=== PATIENT | female | born 1955 | race Caucasian/White ===

== ENCOUNTER 2017-07-23 20:01 | Emergency (ER) | payer OTHER ==
--- NOTE | 2017-07-23 20:22 | PDOC ---
Rapid Medical Evaluation Time Seen by Provider: 07/23/17 20:20 Medical Evaluation: 07/23/17 20:20 I have performed a brief in-person evaluation of this patient. The patient presents with a chief complaint of: pain x 2 weeks "inside", R leg, denies swelling, denies recent travel Pertinent physical exam findings: no calf tenderness, no edema, ambulatory I have ordered the following: x-ray The patient will proceed to the ED for further evaluation. Discharge Disposition - Diagnosis Right leg pain - Referrals - Patient Instructions - Post Discharge Activity
[2017-07-23 20:23] VITALS: BP 154/84; PULSE 84; TEMP 98.3; BMI 20.5
--- NOTE | 2017-07-23 21:15 | PDOC ---
History of Present Illness - General Chief Complaint: Pain Stated Complaint: RT LEG PAIN Time Seen by Provider: 07/23/17 20:20 History Source: Patient Exam Limitations: No Limitations - History of Present Illness Initial Comments: 07/23/17 21:11 This is a 62-year-old woman with past medical history of asthma who presents with right lower leg she denies any trauma, fevers, chills, recent travel, recent surgery, shortness of breath, leg swelling. She states the pain comes and goes and is unable to identify any aggravating or alleviating factors. Patient states that night the pain sometimes gets worse and she describes as a cramping feeling which she is unable to fully extend her knee. Patient states throughout the day she watches her grandchildren and she spends most of the day chasing them around. Past History - Past Medical History Allergies/Adverse Reactions: Allergies Allergy/AdvReac Type Severity Reaction Status Date / Time ibuprofen [From Motrin] Allergy Verified 07/23/17 20:24 Home Medications: Ambulatory Orders Acetaminophen [Tylenol] 325 mg PO ASDIR 07/23/17 Cetirizine HCl [Zyrtec -] 10 mg PO DAILY 07/23/17 Montelukast Na [Singulair -] 10 mg PO HS 07/23/17 Asthma: Yes COPD: No Other medical history: denies - Immunization History Immunization Up to Date: Yes - Suicide/Smoking/Psychosocial Hx Smoking History: Never smoked Information on smoking cessation initiated: No Hx Alcohol Use: No Drug/Substance Use Hx: No Substance Use Type: None Review of Systems - Review of Systems Able to Perform ROS?: Yes Is the patient limited [place] proficient: No Constitutional: No: Symptoms Reported HEENTM: No: Symptoms Reported Respiratory: No: Symptoms reported Cardiac (ROS): No: Symptoms Reported ABD/GI: No: Symptoms Reported : No: Symptoms Reported Musculoskeletal: Yes: See HPI Integumentary: No: Symptoms Reported Neurological: No: Symptoms reported Endocrine: No: Symptoms Reported Hematologic/Lymphatic: No: Symptoms Reported *Physical Exam - Vital Signs Last Vital Signs Temp Pulse Resp BP Pulse Ox 98.3 F 84 20 154/84 97 07/23/17 20:21 07/23/17 20:21 07/23/17 20:21 07/23/17 20:21 07/23/17 20:21 - Physical Exam General Appearance: Yes: Appropriately Dressed. No: Apparent Distress HEENT: positive: Normal ENT Inspection Neck: positive: Trachea midline, Supple Respiratory/Chest: positive: Lungs Clear, Normal Breath Sounds. negative: Respiratory Distress, Accessory Muscle Use Cardiovascular: positive: Regular Rhythm, Regular Rate. negative: Edema, Murmur Gastrointestinal/Abdominal: positive: Normal Bowel Sounds, Soft. negative: Tender Musculoskeletal: positive: Normal Inspection. negative: CVA Tenderness Extremity: positive: Normal Capillary Refill, Normal Inspection, Normal Range of Motion Integumentary: positive: Normal Color, Dry, Warm Neurologic: positive: Alert, Normal Response ED Treatment Course - LABORATORY CBC & Chemistry Diagram: 07/23/17 21:10 07/23/17 21:10 Medical Decision Making - Medical Decision Making 07/23/17 21:13 A/P: 62-year-old female with right lower leg pain for 2 weeks No swelling, erythema or cords present. Patient to fully extend and flex knee against resistance. No bony tenderness to palpation X-ray, CBC, BMP 07/23/17 21:17 X-rays read by me: No fractures noted. 07/23/17 21:57 Blood count and chemistries within normal limits. Discharge the patient home to follow-up with her primary doctor tomorrow as previously scheduled. *DC/Admit/Observation/Transfer Diagnosis at time of Disposition: Right leg pain - Discharge Dispostion Disposition: HOME Condition at time of disposition: Stable Admit: No - Referrals Referrals: David Delacruz MD [Primary Care Provider] - - Patient Instructions Additional Instructions: Take Tylenol or Motrin as directed by manufacturers instructions as needed for pain. Follow up with her primary doctor as previously scheduled. Return to ER for any concerns. - Post Discharge Activity
[2017-07-23 21:20] LABS: BASO % 0.9 % (0-2.0); EOS % 8.1 % (0-4.5); HEMATOCRIT 41.8 % (32.4-45.2); HEMOGLOBIN 14.6 GM/dL (10.7-15.3); LYMPH % 33.3 % (8-40); MCH 31.5 pg (25.7-33.7); MCHC 34.8 g/dl (32.0-36.0); MEAN CELL VOLUME 90.4 fl (80-96); MEAN PLT VOLUME 7.7 fl (7.5-11.1); MONO % 10.7 % (3.8-10.2); PLATELET COUNT 297 K/MM3 (134-434); RBC 4.63 M/mm3 (3.60-5.2); RDW 12.9 % (11.6-15.6); WHITE BLOOD COUNT 8.3 K/mm3 (4.0-10.0)
[2017-07-23 21:51] LABS: ANION GAP 4 (8-16); BLOOD UREA NITROGEN 18 mg/dL (7-18); CALCIUM 9.6 mg/dL (8.5-10.1); CHLORIDE 106 mmol/L (98-107); CO2 32 mmol/L (21-32); CREATININE 0.7 mg/dL (0.55-1.02); GLUCOSE,RANDOM 89 mg/dL (74-106); POTASSIUM 4.6 mmol/L (3.5-5.1); SODIUM 142 mmol/L (136-145)
== END 2017-07-23 22:07 | disposition home or self-care (01) ==
LOC: JERFT 20:01
DX: M79.604 Pain in right leg (principal); J45.990 Exercise induced bronchospasm; Z88.6 Allergy status to analgesic agent
CPT/HCPCS: 36415; 73590-TC-RT-FY; 80048; 85025; 99281-25

== ENCOUNTER 2023-05-06 17:06 | Emergency (ER) | payer OTHER ==
[2023-05-06 17:29] VITALS: BP 147/76; PULSE 75; RESP 16; TEMP 98.2; BMI 21.4
[2023-05-06] MEDS ORDERED: DIPHTH,PERTUSS(ACELL),TET 0.5 ML DISP.SYRIN IM ONE (19:01)
[2023-05-06] MEDS ORDERED: ACETAMINOPHEN 325 MG TABLET (FP) ONE (19:01)
[2023-05-06] MEDS: ACETAMINOPHEN 500 MG TABLET (FP) PO ONE (19:05)
[2023-05-06] MEDS: DIPHTH,PERTUSS(ACELL),TET 0.5 ML DISP.SYRIN IM ONE (19:05)
[2023-05-06] MEDS ORDERED: LIDOCAINE HCL 2% (20ML MULTI-DOSE VIAL) ONE (19:58)
[2023-05-06] MEDS ORDERED: METHOCARBAMOL 500 MG TABLET ONE (20:14)
[2023-05-06] MEDS ORDERED: LIDOCAINE 4% PATCH TP ONE (20:14)
[2023-05-06] MEDS: LIDOCAINE 5% TOPICAL PATCH TP ONE (20:18)
[2023-05-06] MEDS: METHOCARBAMOL 500 MG TABLET PO ONE (20:18)
== END 2023-05-06 22:15 | disposition home or self-care (01) ==
LOC: JER 17:06
PROC: 3E0234Z Introduction of Serum, Toxoid and Vaccine into Muscle, Percutaneous Approach (ICD-10-PCS; principal; 2023-05-06)
DX: S00.83XA Contusion of other part of head, initial encounter (principal); W01.0XXA Fall on same level from slipping, tripping and stumbling without subsequent striking against object, initial encounter; Y93.01 Activity, walking, marching and hiking
CPT/HCPCS: 70450-TC; 70486-TC; 71045-TC-FY; 72125-TC; 73562-TC-LT-FY; 73562-TC-RT-FY; 90471; 90715; 99284-25